=== PATIENT | male | born 1950 | race Caucasian/White ===

== ENCOUNTER 2018-04-10 23:07 | Emergency (ER) | payer MEDICARE, OTHER ==
[2018-04-10] MEDS ORDERED: KETOROLAC 30 MG/ML VIAL IM ONE (23:42)
--- NOTE | 2018-04-11 00:10 | Emergency Department Record ---
History of Present Illness - General Chief Complaint: Overdose Stated Complaint: TOOK TO MUCH MEDICINE Time Seen by Provider: 04/10/18 23:29 Source: Patient Mode of Arrival: Ambulatory Limitations: No limitations - History of Present Illness Initial Comments: pt took 600mg extra neurontin tonight because shoulder was still hurting for a total of 3000mg of neurontin for the day. he normally takes 2400mg a day. 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 he also takes morphine Complaint: Intentional overdose -: Hour(s) - Rolando Coma Scale Eye Response: (4) Open spontaneously Motor Response: (6) Obeys commands Verbal Response: (5) Oriented [place] Total: 15 - Detail Intent: Other How Overdose Was Discovered: Called family/friend Context: Accidental Overdose: Medication error Treatments Prior to Arrival: None - Related Data Home Medications Medication Instructions Recorded Confirmed Last Taken Amitriptyline HCl 50 mg PO QHS 04/10/18 04/10/18 04/10/18 Atenolol [Tenormin] 50 mg PO DAILY 04/10/18 04/10/18 04/10/18 Duloxetine HCl [Cymbalta] 60 mg PO QHS 04/10/18 04/10/18 04/10/18 Gabapentin [Neurontin] 1,200 mg PO BID 04/10/18 04/10/18 04/10/18 Melatonin 5 mg PO QHS 04/10/18 04/10/18 04/10/18 Morphine Sulfate [Morphine Sulfate 30 mg PO Q12H 04/10/18 04/10/18 04/10/18 ER] Morphine Sulfate [Msir] 15 mg PO Q8H PRN 04/10/18 04/10/18 04/10/18 Terazosin HCl 5 mg PO QHS 04/10/18 04/10/18 04/10/18 Allergies Allergy/AdvReac Type Severity Reaction Status Date / Time No Known Drug Allergies Allergy Verified 04/10/18 23:15 Travel Screening - Travel/Exposure Within Last 30 Days Have you traveled within the last 30 days?: No - Travel Symptoms Symptom Screening: None Review of Systems Reviewed: No additional complaints except as noted below Constitutional: Reports: As per HPI. Denies: Chills, Fever, Malaise, Night sweats, Weakness, Weight change Eyes: Reports: As per HPI. Denies: Eye discharge, Eye pain, Photophobia, Vision change ENT: Reports: As per HPI. Denies: Congestion, Dental pain, Ear pain, Epistaxis , Hearing loss, Throat pain Respiratory: Reports: As per HPI. Denies: Cough, Dyspnea, Hemoptysis, Stridor, Wheezes Cardiovascular: Reports: As per HPI. Denies: Arrhythmia, Chest pain, Dyspnea on exertion, Edema, Murmurs, Orthopnea, Palpitations, Paroxysmal nocturnal dyspnea, Rheumatic Fever, Syncope Endocrine: Reports: As per HPI. Denies: Fatigue, Heat or cold intolerance, Polydipsia, Polyuria Gastrointestinal: Reports: As per HPI. Denies: Abdominal pain, Constipation, Diarrhea, Hematemesis, Hematochezia, Melena, Nausea, Vomiting Genitourinary: Reports: As per HPI. Denies: Dysuria, Frequency, Hematuria, Incontinence, Retention, Testicular pain, Testicular mass, Urgency Musculoskeletal: Reports: As per HPI. Denies: Arthralgia, Back pain, Gout, Joint swelling, Myalgia, Neck pain Skin: Reports: As per HPI. Denies: Bruising, Change in color, Change in hair/ nails, Lesions, Pruritus, Rash Neurological: Reports: As per HPI. Denies: Abnormal gait, Confusion, Headache, Numbness, Paresthesias, Seizure, Tingling, Tremors, Vertigo, Weakness Psychiatric: Reports: As per HPI. Denies: Anxiety, Auditory hallucinations, Depression, Homicidal thoughts, Suicidal thoughts, Visual hallucinations Hematological/Lymphatic: Reports: As per HPI. Denies: Anemia, Blood Clots, Easy bleeding, Easy bruising, Swollen glands Past Medical History - SOCIAL HISTORY Smoking Status: Never smoker - RESPIRATORY Hx Respiratory Disorders: No - CARDIOVASCULAR Hx Cardio Disorders: Yes Hx Hypertension: Yes - NEURO Hx Neuro Disorders: Yes Hx Neuropathy: Yes - GI Hx GI Disorders: Yes Hx Diverticulitis: Yes Hx Obstructive Bowel: Yes (surgery for obstruction) - Hx Genitourinary Disorders: No - ENDOCRINE Hx Endocrine Disorders: No - MUSCULOSKELETAL Hx Musculoskeletal Disorders: Yes Hx Arthritis: Yes (back and neck, back) - PSYCH Hx Psych Problems: No - HEMATOLOGY/ONCOLOGY Hx Hematology/Oncology Disorders: No Family Medical History Any Significant Family History?: Yes Hx Heart Disease: Mother Hx Kidney Disease: Father Physical Exam - General General Appearance: Alert, Oriented x3, Cooperative, Mild distress - Head Head exam: Normal inspection - Eye Eye exam: Normal appearance, PERRL, EOMI Pupils: Normal accommodation - ENT ENT exam: Normal exam, Mucous membranes moist, Normal external ear exam, Normal orophraynx Ear exam: Normal external inspection. negative: External canal tenderness Nasal Exam: Normal inspection. negative: Discharge, Sinus tenderness Mouth exam: Normal external inspection, Tongue normal Teeth exam: Normal inspection. negative: Dental caries Throat exam: Normal inspection. negative: Tonsillar erythema, Tonsillar exudate - Neck Neck exam: Normal inspection, Full ROM. negative: Tenderness - Respiratory Respiratory exam: Normal lung sounds bilaterally. negative: Respiratory distress - Cardiovascular Cardiovascular Exam: Regular rate, Normal rhythm, Normal heart sounds - GI/Abdominal GI/Abdominal exam: Soft, Normal bowel sounds. negative: Tenderness - Rectal Rectal exam: Deferred - exam: Deferred - Extremities Extremities exam: Normal inspection, Full ROM, Normal capillary refill, Tenderness (r arm amputation) - Back Back exam: Reports: Normal inspection, Full ROM. Denies: Muscle spasm, Rash noted, Tenderness - Neurological Neurological exam: Alert, CN II-XII intact, Normal gait, Oriented X3 - Psychiatric Psychiatric exam: Normal affect, Normal mood - Skin Skin exam: Dry, Intact, Normal color, Warm Course Vital Signs 04/10/18 23:16 Temperature 98.0 F Pulse Rate 100 H Respiratory 20 Rate Blood Pressure 160/80 Pulse Ox 95 Disposition Disposition: Discharge Clinical Impression: Chronic pain Qualifiers: Chronic pain type: other chronic pain Qualified Code(s): G89.29 - Other chronic pain Gabapentin overdose Qualifiers: Encounter type: initial encounter Injury intent: undetermined intent Qualified Code(s): T42.6X4A - Poisoning by other antiepileptic and sedative-hypnotic drugs , undetermined, initial encounter Disposition: Home, Self-Care Condition: (1) Good Instructions: Chronic Pain (ED), Gabapentin (By mouth) Additional Instructions: follow up with family doctor. return sooner if worth. take meds as directed Quality - Quality Measures Quality Measures: N/A - Blood Pressure Screening Does Patient Have Any of the Following: No Blood Pressure Classification: Pre-Hypertensive BP Reading Systolic Measurement: 160 Diastolic Measurement: 80 Screening for High Blood Pressure: < Pre-Hypertensive BP, F/U Documented > [ G8950] Pre-Hypertensive Follow-up Interventions: Follow-up with rescreen every year.
== END 2018-04-11 00:35 | disposition home or self-care (01) ==
LOC: ER 23:07
DX: T42.6X4A Poisoning by other antiepileptic and sedative-hypnotic drugs, undetermined, initial encounter (principal); G54.6 Phantom limb syndrome with pain; I10 Essential (primary) hypertension
CPT/HCPCS: 99283 ×2; 96372; J1885

== ENCOUNTER 2018-05-04 19:11 | Emergency (ER) | payer MEDICARE ==
[2018-05-04] MEDS ORDERED: KETOROLAC 30 MG/ML VIAL IM ONE (19:38)
--- NOTE | 2018-05-04 19:42 | Emergency Department Record ---
History of Present Illness - General Chief complaint: Pain Stated complaint: RT ARM PAIN Time Seen by Provider: 05/04/18 19:23 Source: Patient Mode of Arrival: Ambulatory Limitations: No limitations - History of Present Illness Initial comments: The patient is here due to chronic R arm phantom pain. He had his R arm amputated about 10 years ago and since has had chronic phantom pain off and on. He is on multiple medicines for it but today the pain worsened. He does have an appointment with a pain specialist tomorrow. The patient denies any Cp, SOB, HAROLDO , or sweating. He states this is the same pain he has had off and on since his injury. MD Complaint: Extremity pain Onset/Timin -: Hour(s) Severity scale (1-10): 10 Quality: Aching Consistency: Constant Improves with: Nothing Worsens with: Nothing Associated Symptoms: Denies other symptoms - Related Data Allergies Allergy/AdvReac Type Severity Reaction Status Date / Time No Known Drug Allergies Allergy Verified 04/10/18 23:15 Travel Screening - Travel/Exposure Within Last 30 Days Have you traveled within the last 30 days?: No Review of Systems Constitutional: Denies: Chills, Fever Eyes: Denies: Eye discharge ENT: Denies: Congestion Respiratory: Denies: Cough, Dyspnea Cardiovascular: Denies: Arrhythmia, Chest pain, Dyspnea on exertion Endocrine: Denies: Fatigue Past Medical History - SOCIAL HISTORY Smoking Status: Never smoker Alcohol Use: None Drug Use: None - RESPIRATORY Hx Respiratory Disorders: No - CARDIOVASCULAR Hx Cardio Disorders: Yes Hx Hypertension: Yes - NEURO Hx Neuro Disorders: Yes Hx Neuropathy: Yes - GI Hx GI Disorders: Yes Hx Diverticulitis: Yes Hx Obstructive Bowel: Yes (surgery for obstruction) - Hx Genitourinary Disorders: No - ENDOCRINE Hx Endocrine Disorders: No - MUSCULOSKELETAL Hx Musculoskeletal Disorders: Yes Hx Arthritis: Yes (back and neck, back) - PSYCH Hx Psych Problems: No - HEMATOLOGY/ONCOLOGY Hx Hematology/Oncology Disorders: No Family Medical History Any Significant Family History?: Yes Hx Heart Disease: Mother Hx Kidney Disease: Father Physical Exam - General General Appearance: Alert, Oriented x3, Cooperative, Mild distress (due to R arm phantom pain.) - Head Head exam: Atraumatic - Eye Eye exam: Normal appearance, PERRL - ENT Throat exam: Normal inspection. negative: Tonsillar erythema, Tonsillar exudate - Neck Neck exam: Normal inspection, Full ROM. negative: Tenderness - Respiratory Respiratory exam: Normal lung sounds bilaterally. negative: Respiratory distress - Cardiovascular Cardiovascular Exam: Regular rate, Normal rhythm, Normal heart sounds - GI/Abdominal GI/Abdominal exam: Soft, Normal bowel sounds. negative: Tenderness - Extremities Extremities exam: negative: Normal inspection (The R arm is missing from just distal to the shoulder. ) Course Vital Signs 05/04/18 19:18 Temperature 97.4 F L Pulse Rate [ 94 H Pulse Ox Probe] Respiratory 20 Rate Blood Pressure 164/101 [Left Arm] Pulse Ox 95 - Reevaluation(s) Reevaluation #1: The patient is doing a lot better at this time. His pain is resolving and he is ready for home. 05/04/18 20:05 Disposition Disposition: Discharge Clinical Impression: Chronic pain Qualifiers: Chronic pain type: other chronic pain Qualified Code(s): G89.29 - Other chronic pain Disposition: Home, Self-Care Condition: (2) Stable Instructions: Chronic Pain (ED) Additional Instructions: Please continue your regular medicines and keep your appointment with your pain specialist for tomorrow. Return to the ER for any worsening symptoms. Forms: Patient Portal Access Time of Disposition: 20:06 Quality - Quality Measures Quality Measures: N/A - Blood Pressure Screening View Details: Yes Does Patient Have Any of the Following: Active Dx of HTN Blood Pressure Classification: Hypertensive Reading Systolic Measurement: 164 Diastolic Measurement: 101 Screening for High Blood Pressure: Patient Exclusion, Hx of HTN [G9744]
== END 2018-05-04 20:11 | disposition home or self-care (01) ==
LOC: ER 19:11
DX: G54.6 Phantom limb syndrome with pain (principal); Z89.201 Acquired absence of right upper limb, unspecified level
CPT/HCPCS: 99283 ×2; 96372; J1885

== ENCOUNTER 2018-06-03 22:48 | Emergency (ER) | payer MEDICARE ==
--- NOTE | 2018-06-03 23:15 | Emergency Department Record ---
Anxiety - General Chief Complaint: Anxiety Stated Complaint: ANXIETY Time Seen by Provider: 06/03/18 23:14 Source: Patient Mode of Arrival: Ambulatory Limitations: No limitations - History of Present Illness Initial Comments: 67 yo male presents to ED for evaluation of anxiety symptoms. Patient reports that he has not had the money to fill his anxiety medication (Amitriptyline), however his daughter is going to fill the prescription tomorrow. Patient reports "I don't feel liek I can be alone, just feel antsy". Patient's daughter reports similar symptoms previously related to the patient's anxiety. Patient does report that he is trying wean from his pain medication that he takes for "phantom limb pain" following amputation of the RUE following traumatic injury. Patient denies chest pain or discomfort symptoms. MD Complaint: Anxiety Onset/Timin -: Hour(s) Symptoms: Other Place: Home Previous History of Same: Yes Severity: Moderate Quality: Intermittant, Similar to prior episodes Provoking factors: Emotional stress, Medication change Improves With: Medication Worsens With: Thinking about event - Related Data Allergies/Adverse Reactions: Allergies Allergy/AdvReac Type Severity Reaction Status Date / Time No Known Drug Allergies Allergy Verified 04/10/18 23:15 Travel Screening - Travel/Exposure Within Last 30 Days Have you traveled within the last 30 days?: No - Travel Symptoms Symptom Screening: None Review of Systems Constitutional: Denies: Chills, Fever, Malaise, Night sweats Eyes: Denies: Eye discharge, Eye pain ENT: Denies: Congestion, Ear pain, Epistaxis, Throat pain Respiratory: Denies: Cough, Dyspnea Cardiovascular: Denies: Chest pain, Dyspnea on exertion Endocrine: Denies: Fatigue, Heat or cold intolerance Gastrointestinal: Denies: Abdominal pain, Constipation, Vomiting Genitourinary: Denies: Incontinence, Retention Musculoskeletal: Denies: Arthralgia, Back pain Skin: Denies: Bruising, Change in color Neurological: Denies: Abnormal gait, Confusion, Headache, Seizure Psychiatric: Denies: Anxiety Hematological/Lymphatic: Denies: Anemia, Blood Clots Past Medical History - SOCIAL HISTORY Smoking Status: Never smoker Alcohol Use: None Drug Use: None - RESPIRATORY Hx Respiratory Disorders: No - CARDIOVASCULAR Hx Cardio Disorders: Yes Hx Hypertension: Yes - NEURO Hx Neuro Disorders: Yes Hx Neuropathy: Yes - GI Hx GI Disorders: Yes Hx Diverticulitis: Yes Hx Obstructive Bowel: Yes (surgery for obstruction) - Hx Genitourinary Disorders: No - ENDOCRINE Hx Endocrine Disorders: No - MUSCULOSKELETAL Hx Musculoskeletal Disorders: Yes Hx Arthritis: Yes (back and neck, back) - PSYCH Hx Psych Problems: Yes Hx Anxiety: Yes - HEMATOLOGY/ONCOLOGY Hx Hematology/Oncology Disorders: No Family Medical History Any Significant Family History?: Yes Hx Heart Disease: Mother Hx Kidney Disease: Father Physical Exam - General General Appearance: Alert, Oriented x3, Cooperative, Mild distress, Anxious Limitations: No limitations - Head Head exam: Atraumatic, Normocephalic, Normal inspection Head exam detail: negative: Abrasion, Contusion, Chase's sign, General tenderness, Hematoma, Laceration - Eye Eye exam: Normal appearance. negative: Conjunctival injection, Periorbital swelling, Periorbital tenderness, Scleral icterus - ENT Ear exam: negative: Auricular hematoma, Auricular trauma Nasal Exam: negative: Active bleeding, Discharge, Dried blood, Foreign body Mouth exam: negative: Drooling, Laceration, Muffled voice, Tongue elevation - Neck Neck exam: Normal inspection. negative: Meningismus, Tenderness - Respiratory Respiratory exam: Normal lung sounds bilaterally. negative: Rales, Respiratory distress, Rhonchi, Stridor - Cardiovascular Cardiovascular Exam: Regular rate, Normal rhythm, Normal heart sounds - GI/Abdominal GI/Abdominal exam: Soft. negative: Rebound, Rigid, Tenderness - Rectal Rectal exam: Deferred - exam: Deferred - Extremities Extremities exam: Full ROM, Other (Previous amputation of the right upper extremity). negative: Pedal edema - Back Back exam: Denies: CVA tenderness (R), CVA tenderness (L) - Neurological Neurological exam: Alert, Normal gait, Oriented X3 - Psychiatric Psychiatric exam: Anxious - Skin Skin exam: Normal color. negative: Abrasion Type of lesion: negative: abrasion Course Vital Signs 06/03/18 22:54 Temperature 98.7 F Pulse Rate [ 65 Left] Respiratory 16 Rate Blood Pressure 149/89 [Left Arm] Pulse Ox 95 - Reevaluation(s) Reevaluation #1: 06/03/18 23:14 EKG: NSR 87 Normal axis, normal intervals No acute ST-T wave changes. Reevaluation #2: 06/04/18 00:10 Patient was reassessed, reports that he is feeling more comfortable. Patient also reported at this time that he has been out of his Amitryptiline for 2 days, likely the cause of his symptoms. Patient appears stable for discharge at this time. Disposition Disposition: Discharge Clinical Impression: Anxiety reaction Disposition: Home, Self-Care Condition: (2) Stable Instructions: Anxiety (ED) Additional Instructions: Return to ED if your symptoms worsen or if you have any concerns. Fill your anxiety medication tomorrow as directed. Follow-up with your family doctor in 3-5 days as directed. Forms: Patient Portal Access Time of Disposition: 23:32 Quality - Quality Measures Quality Measures: N/A - Blood Pressure Screening Does Patient Have Any of the Following: No Blood Pressure Classification: Pre-Hypertensive BP Reading Systolic Measurement: 149 Diastolic Measurement: 89 Screening for High Blood Pressure: < Pre-Hypertensive BP, F/U Documented > [ G8950] Pre-Hypertensive Follow-up Interventions: Referral to alternative/primary care provider.
[2018-06-03] MEDS ORDERED: LORAZEPAM 0.5 MG TABLET PO ONE (23:25)
== END 2018-06-04 00:17 | disposition home or self-care (01) ==
LOC: ER 22:48
DX: F41.9 Anxiety disorder, unspecified (principal); T43.016A Underdosing of tricyclic antidepressants, initial encounter; I10 Essential (primary) hypertension; G54.6 Phantom limb syndrome with pain; Z91.120 Patient's intentional underdosing of medication regimen due to financial hardship
CPT/HCPCS: 93005; 93010; 99284

== ENCOUNTER 2018-07-09 20:23 | Emergency (ER) | payer MEDICARE ==
[2018-07-09] MEDS ORDERED: LORAZEPAM 2 MG/ML VIAL IV ONE (20:37)
--- NOTE | 2018-07-09 20:42 | Emergency Department Record ---
Anxiety - General Chief Complaint: Anxiety Stated Complaint: HAROLDO Time Seen by Provider: 07/09/18 20:29 Source: Patient Mode of Arrival: Ambulatory Limitations: No limitations - History of Present Illness Initial Comments: The patient is here due to anxiety. He was at home and had been in his normal state of healthy when he began to feel anxious. He developed mild HAROLDO and sweating with the anxiety but has had no CP or back pain. The patient states he has a long hx of anxiety similar to this and has been to the ER for it a month ago. He also has a long hx of chronic pain due to a R arm amputation. The patient denies any cardiac history. MD Complaint: Anxiety, Shortness of breath Onset/Timin -: Hour(s) Place: Home Previous History of Same: Yes Severity: Moderate Quality: Constant Provoking factors: None known Improves With: Nothing Worsens With: Thinking about event - Related Data Home Medications: Home Medications Medication Instructions Recorded Confirmed Last Taken Buspirone HCl [Buspar] 10 mg PO BID 07/09/18 07/09/18 07/09/18 Allergies/Adverse Reactions: Allergies Allergy/AdvReac Type Severity Reaction Status Date / Time No Known Drug Allergies Allergy Verified 04/10/18 23:15 Travel Screening - Travel/Exposure Within Last 30 Days Have you traveled within the last 30 days?: No - Travel/Exposure Within Last Year Have you traveled outside the [place] in the last year?: No - Additonal Travel Details Have you been exposed to anyone with a communicable illness?: No - Travel Symptoms Symptom Screening: None Review of Systems Constitutional: Denies: Chills, Fever Eyes: Denies: Eye discharge ENT: Denies: Congestion Respiratory: Denies: Cough Cardiovascular: Denies: Arrhythmia, Chest pain Endocrine: Denies: Fatigue Gastrointestinal: Denies: Nausea Genitourinary: Denies: Dysuria Musculoskeletal: Denies: Arthralgia, Back pain Skin: Denies: Bruising Past Medical History - SOCIAL HISTORY Smoking Status: Never smoker Alcohol Use: None Drug Use: None - RESPIRATORY Hx Respiratory Disorders: No - CARDIOVASCULAR Hx Cardio Disorders: Yes Hx Hypertension: Yes - NEURO Hx Neuro Disorders: Yes Hx Neuropathy: Yes - GI Hx GI Disorders: Yes Hx Diverticulitis: Yes Hx Obstructive Bowel: Yes (surgery for obstruction) - Hx Genitourinary Disorders: No - ENDOCRINE Hx Endocrine Disorders: No - MUSCULOSKELETAL Hx Musculoskeletal Disorders: Yes Hx Arthritis: Yes (back and neck) - PSYCH Hx Psych Problems: Yes Hx Anxiety: Yes - HEMATOLOGY/ONCOLOGY Hx Hematology/Oncology Disorders: No Family Medical History Any Significant Family History?: Yes Hx Heart Disease: Mother Hx Kidney Disease: Father Physical Exam - General General Appearance: Alert, Oriented x3, Cooperative, No acute distress - Head Head exam: Atraumatic, Normocephalic, Normal inspection - Eye Eye exam: Normal appearance, PERRL, EOMI - Neck Neck exam: Normal inspection, Full ROM. negative: Tenderness - Respiratory Respiratory exam: Normal lung sounds bilaterally. negative: Respiratory distress - Cardiovascular Cardiovascular Exam: Regular rate, Normal rhythm, Normal heart sounds - GI/Abdominal GI/Abdominal exam: Soft, Normal bowel sounds. negative: Tenderness - Extremities Extremities exam: Full ROM (L arm.), Normal capillary refill. negative: Normal inspection (R arm amputation.), Tenderness - Back Back exam: Reports: Normal inspection - Neurological Neurological exam: Alert, Normal gait. negative: Abnormal gait, Altered, Motor sensory deficit - Psychiatric Psychiatric exam: Anxious Course Vital Signs 07/09/18 20:25 Temperature 97.8 F Pulse Rate 108 H Respiratory 18 Rate Blood Pressure 181/126 Pulse Ox 96 - Reevaluation(s) Reevaluation #1: The patient is feeling a lot better at this time. His anxiety has resolved and his R arm phantom pain is improved. 07/09/18 21:34 Reevaluation #2: The patient is doing very well at this time and states he is ready to leave. I did explain to him that I would like to keep him here for a few hours to recheck his cardiac enzymes and monitor him to make sure his heart is OK. The patient states he is ready to leave. I did explain to him the risks of leaving are that the patient could go home and have an ME, stroke, become disabled and . The patient understands and accepts the risks and understands we cannot be held liable for NOT monitoring him further. His BP is still elevated but he did not take his BP medicines at 8pm like he normally does. He is to F/U with his PCP VALDO and we also will refer him to Cardiology for the HTN and dyspnea. 07/09/18 21:40 Medical Decision Making - Data Complexity MDM Data: Labs Ordered and/or Reviewed, X-Ray Ordered and/or Reviewed, EKG Ordered and/or Reviewed - Lab Data Result diagrams: 07/09/18 20:45 07/09/18 20:45 - EKG Data -: EKG Interpreted by Me EKG: No Acute Changes (LVH O/W neg.) - Radiology Data Radiology results: Report reviewed (CXR: Neg for acute changes.) Disposition Disposition: Discharge Clinical Impression: Anxiety reaction Disposition: Against Medical Advice Condition: (2) Stable Instructions: Social Anxiety Disorder (ED) Additional Instructions: Please continue your regular medicines and please see your family doctor VALDO. Also please see the Production Control Clerk [facility] next week. Return to the ER for any worsening symptoms. Referrals: [facility] [Provider Group] Forms: Patient Portal Access Time of Disposition: 21:44 Quality - Quality Measures Quality Measures: N/A - Blood Pressure Screening View Details: Yes Does Patient Have Any of the Following: Active Dx of HTN Blood Pressure Classification: Hypertensive Reading Systolic Measurement: 181 Diastolic Measurement: 126 Screening for High Blood Pressure: Patient Exclusion, Hx of HTN [G9744]
[2018-07-09 20:49] LABS: BASO % 0.4 % (0-6); EOS % 2.3 % (0-6); GRAN % 63.3 % (47-80); HEMATOCRIT 36.9 % (42.0-52.0); LYMPH % 23.8 % (16-45); MEAN CELL VOLUME 88.7 fl (81-97); MEAN CORPUSCULAR HEMOGLOBIN 28.8 pg (27-33); MEAN CORPUSCULAR HGB CONC 32.5 g/dl (32-36); MEAN PLATELET VOLUME 10.7 fl (7.4-10.4); MONO % 10.2 % (0-9); PLATELET COUNT 259 K/uL (130-400); RED BLOOD COUNT 4.16 M/uL (4.40-5.70); RED CELL DISTRIBUTION WIDTH 12.9 % (11.5-14.5)
[2018-07-09 20:59] LABS: BLOOD UREA NITROGEN 13 mg/dL (8-23); EST GLOMERULAR FILTRATION RATE > 60 mL/min
[2018-07-09 21:00] LABS: TOTAL PROTEIN 7.1 g/dL (6.6-8.7)
[2018-07-09 21:02] LABS: GLUCOSE,RANDOM 124 mg/dL (74-109)
[2018-07-09] MEDS ORDERED: KETOROLAC 30 MG/ML VIAL IVP ONE (21:02)
[2018-07-09 21:04] LABS: ALT/SGPT 12 U/L (<41); AST/SGOT 14 U/L (10.0-50.0)
[2018-07-09 21:05] LABS: ALB/GLOB RATIO 1.4 (1.1-1.8); ALBUMIN 4.2 g/dL (4.0-5.0); ALKALINE PHOSPHATASE 87 U/L (40-129); CREATINE PHOSPHOKINASE 90 U/L (39-308)
[2018-07-09 21:08] LABS: CKMB 2.4 ng/mL (<6.73)
[2018-07-09 21:15] LABS: THYROID STIMULATING HORMONE 2.79 uIU/mL (0.270-4.20)
--- NOTE | 2018-07-13 07:03 | RADIOLOGY REPORT ---
EXAM: CHEST, TWO VIEWS HISTORY: DIFFICULTY IN BREATHING. TECHNIQUE: PA and lateral views of the chest were obtained. Comparison: None. FINDINGS: The heart size is within normal limits. Thoracic curve to the right. Multiple old right rib fractures laterally. Some minor streaky atelectasis or infiltrate in the left base. No definite pleural effusion or pneumothorax evident. There also appears to be old fracture deformity of the lateral aspect of the right scapula near the inferior aspect of the glenoid in particular, and probably old fracture deformity of the right clavicle laterally. IMPRESSION: 1. 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 2. MINOR STREAKY ATELECTASIS OR INFILTRATE IN THE LEFT BASE. 3. OLD RIGHT RIB FRACTURES LATERALLY, AND PROBABLY ALSO AN OLD RIGHT CLAVICULAR FRACTURE LATERALLY AND OLD RIGHT SCAPULAR FRACTURE NEAR THE GLENOID. JOB NUMBER: [id number] [facility]
== END 2018-07-09 21:56 | disposition left against medical advice (07) ==
LOC: ER 20:23
DX: F41.1 Generalized anxiety disorder (principal); R94.5 Abnormal results of liver function studies; R06.00 Dyspnea, unspecified; I10 Essential (primary) hypertension; G54.6 Phantom limb syndrome with pain
CPT/HCPCS: 99284 ×2; 96374; 96375; 82550; 85025; 82553; 80053; 84443; 84484; 71046; 93005; 93010; J1885; J2060

== ENCOUNTER 2018-11-13 21:41 | Emergency (ER) | payer MEDICARE ==
[2018-11-13] MEDS ORDERED: MORPHINE SULFATE 5 MG/ML VIAL IVP ONE (22:08)
[2018-11-13] MEDS ORDERED: 0.9 % SODIUM CHLORIDE 1,000 ML BAG IV ONE (22:08)
--- NOTE | 2018-11-13 22:14 | Emergency Department Record ---
History of Present Illness - General Chief complaint: Pain Stated complaint: FALL/R SHOULDER /NECK AREA Time Seen by Provider: 11/13/18 22:07 Source: Patient, Family Mode of Arrival: Ambulatory Limitations: No limitations - History of Present Illness Initial comments: 68 yo male presents with neck, chest and abdominal pain. He fell in his garage at 6pm. He tripped and he thinks he landed on a door. He has right neck pain with soft tissue swelling, chest, back and abdominal pain. He is not on blood thinners. 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 No head injury. No head pain or involvement. No blood thinners. No other lower extremity pain. MD Complaint: Other Onset/Timin -: Hour(s) Location: Right, Shoulder History of Same: No -: Yes Arthralgia, Yes Myalgia Radiation: Other Quality: Aching, Other Consistency: Constant Improves with: Rest Worsens with: Palpation Associated Symptoms: Arthralgias - Related Data Previous Rx's Medication Instructions Recorded Azithromycin [Zithromax] 250 mg PO DAILY #4 tablet 11/14/18 Allergies Allergy/AdvReac Type Severity Reaction Status Date / Time No Known Drug Allergies Allergy Verified 04/10/18 23:15 Travel Screening - Travel/Exposure Within Last 30 Days Have you traveled within the last 30 days?: No - Travel Symptoms Symptom Screening: None Review of Systems Constitutional: Denies: Chills, Fever, Malaise, Weakness Eyes: Denies: Eye discharge ENT: Denies: Congestion, Throat pain Respiratory: Denies: Cough, Dyspnea, Hemoptysis, Wheezes Cardiovascular: Denies: Chest pain, Palpitations, Syncope Endocrine: Denies: Fatigue Gastrointestinal: Reports: Abdominal pain. Denies: Diarrhea, Melena, Nausea, Vomiting Musculoskeletal: Reports: Arthralgia, Back pain, Myalgia Skin: Reports: Bruising. Denies: Change in color, Rash Neurological: Denies: Headache, Numbness, Weakness Psychiatric: Denies: Anxiety Hematological/Lymphatic: Denies: Easy bleeding, Easy bruising Past Medical History - SOCIAL HISTORY Smoking Status: Never smoker Alcohol Use: None Drug Use: None - RESPIRATORY Hx Respiratory Disorders: No - CARDIOVASCULAR Hx Cardio Disorders: Yes Hx Hypertension: Yes - NEURO Hx Neuro Disorders: Yes Hx Neuropathy: Yes - GI Hx GI Disorders: Yes Hx Diverticulitis: Yes Hx Obstructive Bowel: Yes (surgery for obstruction) - Hx Genitourinary Disorders: No - ENDOCRINE Hx Endocrine Disorders: No - MUSCULOSKELETAL Hx Musculoskeletal Disorders: Yes Hx Arthritis: Yes (back and neck) - PSYCH Hx Psych Problems: Yes Hx Anxiety: Yes - HEMATOLOGY/ONCOLOGY Hx Hematology/Oncology Disorders: No Family Medical History Any Significant Family History?: Yes Hx Heart Disease: Mother Hx Kidney Disease: Father Physical Exam - General General Appearance: Alert, Oriented x3, Cooperative, No acute distress Limitations: No limitations - Head Head exam: Atraumatic, Normocephalic, Normal inspection Head exam detail: negative: Abrasion, Contusion, General tenderness, Hematoma, Laceration - Eye Eye exam: Normal appearance, PERRL. negative: Conjunctival injection, Scleral icterus - ENT ENT exam: Normal exam, Mucous membranes moist, Normal orophraynx Ear exam: Normal external inspection Nasal Exam: Normal inspection Mouth exam: Normal external inspection - Neck Neck exam: Full ROM, Tenderness, Thyromegaly, Other (soft tissue swelling of the right lateral neck with abrasion). negative: Normal inspection, Lymphadenopathy, Meningismus - Respiratory Respiratory exam: Normal lung sounds bilaterally, Chest wall tenderness (anterior, posterior. Abrasion noted posterior). negative: Accessory muscle use, Decreased breath sounds, Prolonged expiratory, Respiratory distress, Rhonchi, Stridor, Wheezes - Cardiovascular Cardiovascular Exam: Regular rate, Normal rhythm, Normal heart sounds - GI/Abdominal GI/Abdominal exam: Soft, Tenderness (mild tenderness RUQ, Right lateral abdomen) - Rectal Rectal exam: Deferred - exam: Deferred - Extremities Extremities exam: negative: Normal inspection (amupated RUE) Image of Full Body: 1 - abrasion with soft tissue swelling 2 - abrasion - Back Back exam: Reports: CVA tenderness (R), Full ROM, Paraspinal tenderness, Tenderness. Denies: Normal inspection, CVA tenderness (L), Rash noted, Vertebral tenderness - Neurological Neurological exam: Alert, Oriented X3 - Psychiatric Psychiatric exam: Normal affect, Normal mood - Skin Skin exam: Abrasion Course Vital Signs 11/13/18 21:59 Temperature 99.4 F Pulse Rate [ 100 H Left] Respiratory 16 Rate Blood Pressure 139/84 [Left] Pulse Ox 94 L - Reevaluation(s) Reevaluation #1: The Vitals were reviewed No significant abnormalities 11/13/18 22:44 The CBC was reviewed No acute abnormality 11/13/18 23:23 No significant changes on the CMP 11/13/18 23:[address] reviewed: Extensive chronic changes. No acute injury. 11/14/18 00:[address] scan of the chest was reviewed. No acute osseous abnormalities in the chest. Previous right arm amputation and multiple old fractures. Left lower lobe infiltrate. Possible aspiration. CT of the Abdomen and Pelvis. No acute osseous or visceral abnormality in the abdomen or pelvis Medical Decision Making - Lab Data Result diagrams: 11/13/18 22:00 11/13/18 22:00 Disposition Disposition: Discharge Clinical Impression: Rib contusion Shoulder contusion Qualifiers: Encounter type: initial encounter Laterality: right Qualified Code(s): S40.011A - Contusion of right shoulder, initial encounter Back contusion Qualifiers: Encounter type: initial encounter Laterality: right Qualified Code(s): S20.221A - Contusion of right back wall of thorax, initial encounter Disposition: Home, Self-Care Condition: (1) Good Instructions: Contusion in Adults (ED) Additional Instructions: Call your doctor for the next available follow up appointment Review this ER visit and the tests performed with your family doctor Return to the ER for a recheck if worse, any new concerns or questions Take the prescriptions provided as directed Prescriptions: Azithromycin [Zithromax] 250 mg PO DAILY #4 tablet Forms: Patient Portal Access Time of Disposition: 00:34 Quality - Quality Measures Quality Measures: N/A - Blood Pressure Screening Does Patient Have Any of the Following: No Blood Pressure Classification: Pre-Hypertensive BP Reading Systolic Measurement: 139 Diastolic Measurement: 84 Screening for High Blood Pressure: < Pre-Hypertensive BP, F/U Documented > [[id number]] Pre-Hypertensive Follow-up Interventions: Referral to alternative/primary care provider.
[2018-11-13 22:28] LABS: BASO % 0.4 % (0-6); EOS % 2.6 % (0-6); GRAN % 70.7 % (47-80); HEMATOCRIT 36.7 % (42.0-52.0); HEMOGLOBIN 12.3 gm/dl (14.0-18.0); LYMPH % 15.7 % (16-45); MEAN CELL VOLUME 88.6 fl (81-97); MEAN CORPUSCULAR HEMOGLOBIN 29.7 pg (27-33); MEAN CORPUSCULAR HGB CONC 33.5 g/dl (32-36); MONO % 10.6 % (0-9); PLATELET COUNT 254 K/uL (130-400); RED BLOOD COUNT 4.14 M/uL (4.40-5.70); RED CELL DISTRIBUTION WIDTH 12.9 % (11.5-14.5); WHITE BLOOD COUNT W/O DIFF 8.3 K/uL (4.2-12.2)
[2018-11-13 22:41] LABS: BLOOD UREA NITROGEN 15 mg/dL (8-23); CREATININE 1.1 mg/dL (0.7-1.2); EST GLOMERULAR FILTRATION RATE > 60 mL/min
[2018-11-13 22:44] LABS: GLUCOSE,RANDOM 100 mg/dL (74-109)
[2018-11-14] MEDS ORDERED: AZITHROMYCIN 500 MG TABLET PO ONE (00:38)
--- NOTE | 2018-11-15 07:39 | CT SCAN REPORT ---
EXAM: CT OF THE CERVICAL SPINE WITHOUT CONTRAST HISTORY: FALL ON A DOOR TODAY. RIGHT NECK PAIN. PATIENT STATES PRIOR NECK FRACTURE. PRIOR RIGHT UPPER EXTREMITY AMPUTATION. TECHNIQUE: Thin collimation helical CT examination of the cervical spine was performed in the axial plane without intravenous contrast. Coronal and sagittal reformatted images are generated and reviewed. Comparison: No prior imaging of the cervical spine available for comparison. Same day CT chest with contrast. FINDINGS: There is normal bone mineralization. There is dextroconvex curvature best seen on the commissary clerk view centered at the cervicothoracic junction level. There is associated secondary levocurvature of the mid to upper cervical spine. The vertebral bodies are otherwise normal in alignment and height. No acute fracture, destructive bone lesion or prevertebral soft tissue swelling is seen. Moderate hypertrophic degenerative changes of the atlantodental joint. Multilevel degenerative disk/degenerative end plate changes are identified most pronounced at the C3-C4 and C5-C6 levels where the changes are moderate. Bridging anterior marginal osteophytes are noted at the C5-C6 and C6-C7 levels. 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 There is likely mild central canal stenosis at the mid to upper levels. Multilevel bilateral facet arthropathy is present most pronounced on the left at the C3-C4 and C4-C5 levels where the changes are moderate to advanced. Multilevel neural foraminal narrowing is present due to uncovertebral joint and facet joint spurring most pronounced at the C3-C4 level where the narrowing is moderate to severe. There is evidence of an old ununited mildly displaced C7 spinous process fracture. There is likely a small old avulsion fracture of the tip of the C6 spinous process versus sequela of old soft tissue injury. There is fat stranding/edema within the lateral right neck soft tissues at the mid to lower levels. The etiology of this is uncertain. Acute soft tissue injury including nerve root injury would be difficult to entirely exclude. The visualized lung apices are clear. There is mild mucosal thickening in the floor of the left maxillary sinus. IMPRESSION: 1. NO ACUTE FRACTURE, SUBLUXATION OR PREVERTEBRAL SOFT TISSUE SWELLING THOUGH THERE IS FAT STRANDING WITHIN THE RIGHT MID TO LOWER NECK SOFT TISSUES. ACUTE SOFT TISSUE INJURY INCLUDING NERVE ROOT INJURY WOULD BE DIFFICULT TO EXCLUDE. SCARRING COULD ALSO HAVE THIS APPEARANCE. CORRELATION WITH PHYSICAL EXAMINATION IS RECOMMENDED. 2. MULTILEVEL DEGENERATIVE CHANGES, DISCUSSED IN DETAIL ABOVE. 3. OLD UNUNITED FRACTURE OF THE SPINOUS PROCESS OF C7. OLD UNUNITED AVULSION FRACTURE OF THE TIP OF THE C6 SPINOUS PROCESS VERSUS SEQUELA OF OLD SOFT TISSUE INJURY. JOB NUMBER: [id number] [facility]
--- NOTE | 2018-11-15 07:53 | CT SCAN REPORT ---
EXAM: CT OF THE CHEST WITH CONTRAST HISTORY: FALL. NECK PAIN. PRIOR RIGHT UPPER EXTREMITY AMPUTATION. TECHNIQUE: Contrast enhanced helical CT examination of the chest was performed. Comparison: Two view chest radiographic examination of the chest dated 07/09/18. FINDINGS: As demonstrated on the prior radiographic examination, the patient is status post right upper extremity amputation at the glenohumeral joint level. The heart is at the upper limits of normal in size. There is mild atherosclerotic calcification of the left coronary artery and left anterior descending artery. The thoracic aorta is mildly atherosclerotic without aneurysmal dilatation nor dissection. No mediastinal nor hilar mass/lymphadenopathy is seen. The central airways are clear. There is a somewhat band like opacity within the left lower lobe with volume loss and air bronchograms. Diagnostic considerations include atelectasis and infiltrate. This is not well seen on the prior radiographic examination. Minor linear atelectasis versus scarring is also noted within the lingula. The lungs are otherwise clear. No pleural or pericardial effusion. The adrenal glands are not enlarged. Old healed fractures of the right scapula and multiple lateral mid to upper right ribs redemonstrated. An old ununited C7 spinous process fracture is demonstrated. No definite acute osseous fracture. Post surgical changes are noted within the distal stomach. The adrenal glands are not enlarged. No definite lytic or blastic bone lesion. IMPRESSION: 1. SOMEWHAT CONFLUENT BAND LIKE OPACITY IN THE LEFT LOWER LOBE WITH MILD VOLUME LOSS AND AIR BRONCHOGRAMS CONSISTENT WITH ATELECTASIS OR INFILTRATE. LINEAR SCARRING OR ATELECTASIS WITHIN THE LINGULA. 2. STATUS POST AMPUTATION OF THE RIGHT UPPER EXTREMITY AT THE LEVEL OF THE GLENOHUMERAL JOINT. 3. OLD HEALED FRACTURES OF THE RIGHT SCAPULA AND MULTIPLE MID TO UPPER RIGHT RIBS. OLD UNUNITED FRACTURE OF THE C7 SPINOUS PROCESS. 4. POST SURGICAL CHANGES INVOLVING THE DISTAL STOMACH. NOT MENTIONED ABOVE ARE CHANGES OF PRIOR CHOLECYSTECTOMY. MINOR PROMINENCE OF THE CENTRAL BILIARY TREE LIKELY RELATES TO A PHYSIOLOGIC RESPONSE TO SURGICAL ABSENCE OF THE GALLBLADDER. 5. CALCIFIED GRANULOMA WITHIN THE SPLEEN. JOB NUMBER: [id number] [facility]
--- NOTE | 2018-11-15 08:07 | CT SCAN REPORT ---
EXAM: CT OF THE ABDOMEN AND PELVIS WITH CONTRAST HISTORY: CHEST AND BACK PAIN POST FALL. TECHNIQUE: Contrast enhanced helical CT examination of the chest, abdomen and pelvis was performed including delayed images through the kidneys with 100 ml of Omnipaque [address] see separate CT chest report. Comparison: No prior imaging of the abdomen or pelvis is available for comparison. Same day CT chest with contrast examination. FINDINGS: As demonstrated on the CT chest examination, there is a somewhat band like opacity with volume loss and air bronchograms in the left lower lobe consistent with atelectasis or infiltrate. Aspiration cannot be excluded. No pleural or pericardial effusion. The heart is not grossly enlarged. The gallbladder is surgically absent. There is mild prominence of the central biliary tree without definite obstructing lesion. This may just relate to a physiologic response to surgical absence of the gallbladder. Correlation with serum bilirubin and alkaline phosphatase levels is recommended. No suspicious focal abnormality demonstrated within the liver, spleen, pancreas, nor adrenal glands. A calcified granuloma is present within the medial aspect of the spleen. The kidneys are normal in appearance and excrete contrast in a normal fashion. No intraabdominal nor retroperitoneal lymphadenopathy. The portal vein and splenic vein are patent. There is mild diffuse atherosclerosis without aneurysmal dilatation of the abdominal aorta nor iliac arteries. No pelvic mass, lymphadenopathy, or free pelvic fluid. There is a small amount of calcification within the central prostate gland. The prostate does not appear grossly enlarged. No intrinsic urinary bladder abnormality is seen. No gross bowel dilatation nor bowel wall thickening. There is a moderate amount of stool throughout the colon. Post surgical changes are noted within a segment of small bowel in the right lower quadrant and post surgical changes are noted within the distal stomach. There is a small sliding type hiatal hernia. No abdominal wall hernia. No suspicious lytic or blastic bone lesion. There are degenerative changes scattered throughout the visualized spine most pronounced at the lumbosacral junction where the changes are moderate in degree. There are mild degenerative changes of the hips. No convincing acute osseous fracture. IMPRESSION: 1. NO CONVINCING CT EVIDENCE OF AN ACUTE INTRAABDOMINAL NOR INTRAPELVIC PROCESS. 2. STATUS POST CHOLECYSTECTOMY. MILD PROMINENCE OF THE CENTRAL BILIARY TREE WITHOUT OBSTRUCTING LESION IDENTIFIED. THIS MAY JUST RELATE TO A PHYSIOLOGIC RESPONSE TO SURGICAL ABSENCE OF THE GALLBLADDER. CORRELATION WITH SERUM BILIRUBIN AND ALKALINE PHOSPHATASE LEVELS IS RECOMMENDED. 3. POST SURGICAL CHANGES IN A SEGMENT OF SMALL BOWEL IN THE RIGHT LOWER QUADRANT WELL THE DISTAL STOMACH. 4. THERE IS A MODERATE AMOUNT OF STOOL THROUGHOUT THE COLON. 5. SMALL SLIDING TYPE HIATAL HERNIA. 6. OPACITY IN THE LEFT LOWER LOBE CONSISTENT WITH INFILTRATE OR ATELECTASIS. JOB [facility]BER: [id number] [facility]
== END 2018-11-14 00:49 | disposition home or self-care (01) ==
LOC: ER 21:41
DX: S40.011A Contusion of right shoulder, initial encounter (principal); S20.221A Contusion of right back wall of thorax, initial encounter; I10 Essential (primary) hypertension; W01.198A Fall on same level from slipping, tripping and stumbling with subsequent striking against other object, initial encounter; Y92.015 Private garage of single-family (private) house as the place of occurrence of the external cause
CPT/HCPCS: 71260; 72125; 74177; 80048; 85025; 96374; 99284; 99285; J7030